=== PATIENT | female | born 1980 | race Caucasian/White ===

== ENCOUNTER 2022-07-03 10:27 | Outpatient (CLI) | payer OTHER, SELFPAY | END 2022-07-03 10:28 | disposition home or self-care (01) | PROVIDERS: Visit Provider Family Medicine | DX: Z00.00 Encounter for general adult medical examination without abnormal findings (principal); E03.9 Hypothyroidism, unspecified; Z13.6 Encounter for screening for cardiovascular disorders | CPT/HCPCS: 80053; 80061; 84443 ==

== ENCOUNTER 2023-02-09 11:16 | Outpatient (CLI) | payer OTHER, SELFPAY ==
--- NOTE | 2023-02-09 11:30 | CRLHL7_ITS ---
For Patients: As a result of the Century Cures Act, medical imaging exams and procedure reports are released immediately into your electronic medical record. You may view this report before your referring provider. If you have questions, please contact your health care provider. BILATERAL SCREENING MAMMOGRAM WITH COMPUTER-AIDED DETECTION AND TOMOSYNTHESIS TECHNIQUE: CC and MLO views were obtained. These mammographic images have been obtained using full-field digital technique. These mammographic images were interpreted with the benefit of computer-aided detection. Breast Tomosynthesis was used in this interpretation. COMPARISON FILM: Baseline. FINDINGS: The breasts are heterogeneously dense, which may obscure small masses IMPRESSION: There is no radiographic evidence for malignancy. ASSESSMENT: BI-RADS Category 1: Negative RECOMMENDATION: Routine screening mammogram in 1 year. A lay language report of this examination will be provided to the patient. Andres Cox M.D. Diagnostic Radiologist [email or web address] Transcribed: 7:30 p.[email or web address]/Dictated by: Andres Cox MD @ 02/12/2023 12:30:00 PM (Electronically Signed)
== END 2023-02-09 11:17 | disposition home or self-care (01) ==
LOC: MAMMO 11:17
PROVIDERS: Visit Provider Family Medicine
DX: Z12.31 Encounter for screening mammogram for malignant neoplasm of breast (principal)
CPT/HCPCS: 77063; 77067

== ENCOUNTER 2023-08-06 13:32 | Outpatient (CLI) | payer OTHER, SELFPAY | END 2023-08-06 13:33 | disposition home or self-care (01) | PROVIDERS: PCP Family Medicine; Visit Provider Family Medicine | DX: R10.13 Epigastric pain (principal) | CPT/HCPCS: 80053; 83690 ==

== ENCOUNTER 2023-08-07 13:50 | Outpatient (CLI) | payer OTHER, SELFPAY | END 2023-08-07 13:51 | disposition home or self-care (01) | LOC: NFLDREF 08-16 12:26 | PROVIDERS: PCP Family Medicine; Referring Provider Family Medicine; Visit Provider Family Medicine | DX: R10.13 Epigastric pain (principal) | CPT/HCPCS: 87338 ==

== ENCOUNTER 2023-08-23 10:31 | Outpatient (CLI) | payer OTHER, SELFPAY ==
--- NOTE | 2023-08-23 11:00 | CT_ITS ---
Patient: FABIÁN BRUCE Facility:?[facility] Patient ID:?[id number] Site Patient ID:?[id number] Site :?1980 Study:?CT-Abdomen/Pelvis 93CC ISOVUE 370 AND WATER PREP-08/23/2023 11:26:01 AM Ordering Physician:?DR. MONTALVO Final Report: Indication: Nausea and bloating Technique: CT Abdomen/Pelvis 93CC ISOVUE 370 AND WATER PREP Please note that all CT scans at this facility use dose modulation, iterative reconstruction, and/or weight-based dosing when appropriate to reduce radiation dose to as low as reasonably achievable. Comparison: None Findings: Lung bases are clear. There is no pleural effusion. No intrahepatic mass. Stones are present in the gallbladder measuring up to 9 millimeters. No biliary obstruction. Normal pancreas. Spleen normal. Normal adrenal glands. Kidneys within normal limits. Normal bladder. Incidental left ovarian cyst measures 2.4 cm. No uterine fibroid. No fracture is present. No dilated bowel loops. No free air or abscess. Increased stool in the colon. Appendix normal. No fracture. No adenopathy. Impression: Increased stool within the colon suggesting constipation. No mechanical bowel obstruction or inflammation. Cholelithiasis. Please note that all CT scans at this facility use dose modulation, iterative reconstruction, and/or weight-based dosing when appropriate to reduce radiation dose to as low as reasonably achievable. Dictated by Andres Cox MD @ 08/23/2023 3:02:25 PM Signed by:?Andres Cox MD @08/23/2023 3:02:25 PM (Electronic Signature)
== END 2023-08-23 10:32 | disposition home or self-care (01) ==
LOC: CT 10:34
PROVIDERS: PCP Family Medicine; Visit Provider Internal Medicine
DX: R11.0 Nausea (principal); K59.00 Constipation, unspecified; K80.20 Calculus of gallbladder without cholecystitis without obstruction
CPT/HCPCS: 74177; Q9967

== ENCOUNTER 2023-12-31 15:15 | Outpatient (CLI) | payer OTHER, SELFPAY | END 2023-12-31 15:16 | disposition home or self-care (01) | PROVIDERS: PCP Family Medicine; Visit Provider Obstetrics & Gynecology | DX: N94.3 Premenstrual tension syndrome (principal); N64.3 Galactorrhea not associated with childbirth | CPT/HCPCS: 84146; 84443 ==

== ENCOUNTER 2024-01-18 12:21 | Outpatient (CLI) | payer OTHER, SELFPAY | END 2024-01-18 12:22 | disposition home or self-care (01) | PROVIDERS: PCP Family Medicine; Visit Provider Family Medicine | DX: Z11.59 Encounter for screening for other viral diseases (principal); Z13.220 Encounter for screening for lipoid disorders; Z13.228 Encounter for screening for other metabolic disorders | CPT/HCPCS: 80053; 80061; 86803 ==

== ENCOUNTER 2024-01-25 10:45 | Emergency (ER) | payer OTHER, SELFPAY ==
[2024-01-25 10:52] VITALS: BP 115/77; PULSE 69; RESP 18; TEMP 36.4; O2SAT 99; BMI 26.6
[2024-01-25 11:32] VITALS: BP 118/82
--- NOTE | 2024-01-25 11:42 | ED.GENADULT ---
HPI - General Adult General Chief complaint: Chest Pain Stated complaint: chest heaviness/poss anxiety Time Seen by Provider: 01/25/24 10:47 History of Present Illness HPI narrative: This 43-year-old female comes in reporting anxiety and some chest discomfort. She did have her regular checkup last week and did have some adjustments for treatment of her anxiety symptoms. She is a mother of 4 children and her is deployed to [facility] for these past 8 months. She states that there is lots of stress being a sole parent. She does report some palpitations. She does not have any nausea, vomiting, lightheadedness, shortness of breath, or diaphoresis. She does not report any exercise intolerance. She does not have any cardiac risk factors. Related Data Previous Rx's ?Medication ?Instructions ?Recorded azelaic acid 15 % topical gel 1 applic topical BID #50 grams 01/10/24 (Finacea) L norgest/E estradiol-E estrad See Rx Instructions PO .COMPLEX 01/18/24 0.15 mg-30 mcg (84)/10 mcg(7) #182 ea tabs,3mos aripiprazole 2 mg tablet (Abilify) 2 mg PO QHS #30 tabs 01/18/24 bupropion HCl 150 mg 24 hr tablet, 150 mg PO QAM #90 tabs 01/18/24 extended release (Wellbutrin XL) escitalopram oxalate 20 mg tablet 20 mg PO QDAY #90 tabs 01/18/24 (Lexapro) hydroxyzine HCl 10 mg tablet 10 mg PO TID PRN anxiety #30 tabs 01/18/24 Allergies Allergy/AdvReac Type Severity Reaction Status Date / Time penicillin V Allergy Mild Rash Verified 01/18/24 12:21 Review of Systems Status of ROS: Reports: 10 or more systems reviewed and unremarkable except as noted in History and below Narrative: Constitutional: No fevers, no weight gain or loss. Eyes: No discharge. No vision changes. HENT: No congestion, no sore throat, no ear pain. Cardiovascular: She reports some palpitations. Respiratory: No shortness of breath, no wheezes, no cough. Gastrointestinal: No abdominal pain, no vomiting, no diarrhea. Genitourinary: No dysuria, no hematuria. Musculoskeletal: Normal range of motion. Skin: No rashes, no pruritis. Neurological: No dizziness, weakness, sensory change, speech change. Endo/Heme/Allergies: No bruising or bleeding. No polydipsia. Pysch: no suicidality. All other systems reviewed and are negative. [facility] Surgical History (Updated 12/31/23 @ 20:20 by Maryam Cabrera MD) S/P foot surgery ?Z98.890 - Other specified postprocedural states (ICD-10) Status post primary low transverse section ?Z98.891 - History of uterine scar from previous surgery (ICD-10) Family History (Updated 07/03/22 @ 10:23 by Carmel Garrison MD) Maternal Grandmother Alzheimers disease Other Alcohol dependence Depression Prostate cancer Social History (Updated 01/21/24 @ 09:18 by Ara Holden ~ [facility]) What is your current living situation?: I presently have a place to live In the past 12 months, utilities in danger of being shut off: no In past 12 months, lack of transportation kept you from medical appts, meetings, work, or getting things needed for daily living: no In the past 12 mos, have been you worried that your food would run out before you had money to buy more?: declined to answer In the past 12 mos, the food you bought just didn't last and you didn't have money to buy more?: never true Smoking Status: Never smoker How often do you have a drink containing alcohol: never AUDIT-C Alcohol total score: 0 Non-prescribed substance use: denies use How often does anyone, including family, friends and others, physically hurt you: never How often does anyone, including family, friends and others, insult or talk down to you: never How often does anyone, including family, friends and others, threaten you with harm: never How often does anyone, including family, friends and others, scream or curse at you: never Little interest or pleasure in doing things: several days Feeling down, depressed, or hopeless: nearly every day Exam Narrative: Exam Narrative: Constitutional: Well-developed, well-nourished, no acute distress. HEENT: Normocephalic, atraumatic. Neck: Normal range of motion. Nontender. Supple. Heart: Regular. No murmurs. Normal rate. Intact distal pulses. Lungs: Clear to auscultation. No wheezes, rhonchi, or rales. Abdomen: Normal bowel sounds. Nontender. No rebound tenderness. Genitalia: Deferred. Back: No midline tenderness. Normal range of motion. Extremities: Normal range of motion. No injury. Skin: Intact. No rash. Warm. No erythema or pallor. Neurologic: No altered sensation. No weakness. Alert and oriented. Psychiatric: No suicidality. She reports anxiety symptoms. Nursing notes and vitals signs are reviewed. Const: Vital Signs, click to edit/add: Vital Signs - 24 hr 01/25/24 10:52 Temperature 97.5 F L Pulse Rate [Pulse Oximeter] 69 Respiratory Rate 18 Blood Pressure [Ri t Upper Arm] 115/77 Pulse Oximetry 99 Oxygen Delivery Me thod Room Air Course Vital Signs Vital signs: Initial Vital Signs Temperature 97.5 F L 01/25/24 10:52 Temperature Source Temporal Artery Scan 01/25/24 10:52 Pulse Rate 69 01/25/24 10:52 Pulse Rhythm Regular 01/25/24 10:52 Respiratory Rate 18 01/25/24 10:52 Blood Pressure 115/77 01/25/24 10:52 Blood Pressure Mean 89 01/25/24 10:52 Blood Pressure Position Sitting 01/25/24 10:52 Pulse Oximetry 99 01/25/24 10:52 Oxygen Delivery Method Room Air 01/25/24 10:52 Vital Signs Temperature 97.5 F L 01/25/24 10:52 Pulse Rate 69 01/25/24 10:52 Respiratory Rate 18 01/25/24 10:52 Blood Pressure 115/77 01/25/24 10:52 Pulse Oximetry 99 01/25/24 10:52 Oxygen Delivery Method Room Air 01/25/24 10:52 Temperature 97.5 F L 01/25/24 10:52 Pulse Rate 69 01/25/24 10:52 Respiratory Rate 18 01/25/24 10:52 Blood Pressure 115/77 01/25/24 10:52 Pulse Oximetry 99 01/25/24 10:52 Oxygen Delivery Method Room Air 01/25/24 10:52 Medical Decision Making MDM Narrative Medical decision making narrative: This patient comes in reporting chest discomfort as described above. She does have a normal EKG and does not have any cardiac risk factors or other associated symptoms. She does report significant anxiety symptoms and is under more stress recently. She is showing frequent PVCs on the monitor technician. I did explain PVCs and gave reassurance is that they are not in themselves a sign of pathology. I discussed other lab and imaging options available and the patient declined these in a process of shared decision making. I did offer to prescribe a few tablets of medicines that might help with her anxiety including propranolol and Ativan. The patient declined these and is recently starting a new treatment plan as prescribed by her primary physician. She will follow up there for ongoing plans. She is sufficiently reassured here and okay to be discharged home. ECG Data Attestation: I personally reviewed and interpreted this ECG as follows: Interpretation: Normal sinus rhythm. Rate is [] beats per minute. There are no ST or T-wave abnormalities. Discharge Plan Discharge Clinical Impression: Atypical chest pain, Anxiety disorder Patient Disposition: Home, Self-Care Condition: Stable Additional Instructions: Continue current plans. Follow up with primary physician for ongoing management. Return if worsening. Prescriptions: No Action escitalopram oxalate [Lexapro] 20 mg tablet 20 mg PO QDAY Qty: 90 3RF hydroxyzine HCl 10 mg tablet 10 mg PO TID PRN (Reason: anxiety) Qty: 30 0RF bupropion HCl [Wellbutrin XL] 150 mg tablet extended release 24 hr 150 mg PO QAM Qty: 90 3RF aripiprazole [Abilify] 2 mg tablet 2 mg PO QHS Qty: 30 3RF L norgest/e.estradiol-e.estrad 0.15 mg-30 mcg (84)/10 mcg (7) tablets,dose pack,3 month See Rx Instructions PO .COMPLEX Qty: 182 3RF Rx Instructions: take 1 tablet daily following the order on blister card(s) PO azelaic acid [Finacea] 15 % gel 1 applic topical BID Qty: 50 3RF Follow Up/Referrals: Carmel Garrison MD [Primary Care Provider] - Stand Alone Forms: [employer] Info Instructions
== END 2024-01-25 12:04 | disposition home or self-care (01) ==
LOC: ED 11:52
PROVIDERS: Emergency Provider Emergency Medicine Emergency Medical Services; PCP Family Medicine
DX: R07.89 Other chest pain (principal); F41.9 Anxiety disorder, unspecified
CPT/HCPCS: 93005; 99284

== ENCOUNTER 2024-04-25 13:41 | Outpatient (CLI) | payer OTHER, SELFPAY ==
--- NOTE | 2024-04-25 13:40 | CRLHL7_ITS ---
For Patients: As a result of the Century Cures Act, medical imaging exams and procedure reports are released immediately into your electronic medical record. You may view this report before your referring provider. If you have questions, please contact your health care provider. BILATERAL SCREENING MAMMOGRAM WITH COMPUTER-AIDED DETECTION AND TOMOSYNTHESIS TECHNIQUE: CC and MLO views were obtained. These mammographic images have been obtained using full-field digital technique. These mammographic images were interpreted with the benefit of computer-aided detection. Breast Tomosynthesis was used in this interpretation. COMPARISON FILM: 02/09/23. FINDINGS: The breasts are heterogeneously dense, which may obscure small masses. IMPRESSION: There is no radiographic evidence for malignancy. ASSESSMENT: BI-RADS Category 1: Negative RECOMMENDATION: Routine screening mammogram in 1 year. A lay language report of this examination will be provided to the patient. Andres Cox M.D. Diagnostic Radiologist [email or web address] SP/Dictated by: Andres Cox MD @ 04/28/2024 10:45:00 AM (Electronically Signed)
== END 2024-04-25 13:42 | disposition home or self-care (01) ==
LOC: MAMMO 13:42
PROVIDERS: PCP Family Medicine; Visit Provider Family Medicine
DX: Z12.31 Encounter for screening mammogram for malignant neoplasm of breast (principal); R92.333 Mammographic heterogeneous density, bilateral breasts
CPT/HCPCS: 77063; 77067

== ENCOUNTER 2024-05-15 10:52 | Outpatient (CLI) | payer OTHER, SELFPAY | END 2024-05-15 10:53 | disposition home or self-care (01) | LOC: FRMREF 10:52 | PROVIDERS: PCP Family Medicine; Visit Provider Family Medicine | DX: R30.0 Dysuria (principal) | CPT/HCPCS: 87086; 87186 ==

== ENCOUNTER 2024-07-07 09:49 | Outpatient (CLI) | payer OTHER, SELFPAY | END 2024-07-07 09:50 | disposition home or self-care (01) | LOC: NPINS 09:51 | PROVIDERS: PCP Family Medicine; Visit Provider Internal Medicine | DX: Z13.0 Encounter for screening for diseases of the blood and blood-forming organs and certain disorders involving the immune mechanism (principal); R14.0 Abdominal distension (gaseous); R10.13 Epigastric pain; Z13.811 Encounter for screening for lower gastrointestinal disorder | CPT/HCPCS: 81382 ==

== ENCOUNTER 2024-11-12 14:31 | Outpatient (CLI) | payer OTHER, SELFPAY | END 2024-11-12 14:32 | disposition home or self-care (01) | LOC: FRMREF 14:33 | PROVIDERS: PCP Family Medicine; Visit Provider Nurse Practitioner Family | DX: Z11.8 Encounter for screening for other infectious and parasitic diseases (principal); R53.83 Other fatigue | CPT/HCPCS: 86618 ==

== ENCOUNTER 2025-01-06 13:15 | Outpatient (CLI) | payer OTHER, SELFPAY | END 2025-01-06 13:16 | disposition home or self-care (01) | LOC: NFLDREF 01-12 17:44 | PROVIDERS: PCP Family Medicine; Referring Provider Family Medicine; Visit Provider Surgery | DX: R10.11 Right upper quadrant pain (principal); K80.20 Calculus of gallbladder without cholecystitis without obstruction | CPT/HCPCS: 80076 ==

== ENCOUNTER 2025-01-29 10:03 | Day surgery (SDC) | payer OTHER, SELFPAY ==
[2025-01-29] VITALS (14 sets, daily range): BP systolic 111–127; BP diastolic 65–82; PULSE 48–73; RESP 16–22; TEMP 36.4–36.8; O2SAT 94–100; BMI 26.4
[2025-01-29] MEDS: SODIUM CHLORIDE 0.9 % (FLUSH) 10 ML SYRINGE IVF (10:40)
[2025-01-29] MEDS: LACTATED RINGERS 1000 ML 1,000 ML 100 ML IV (10:40)
--- NOTE | 2025-01-29 10:43 | W.PM.H&PU ---
History & Physical Update History & Physical Update H&P Reviewed and patient assessed: The following changes are noted below H&P Updates: Patient has had significant constipation for the last month. She has been working with GI and has been doing bowel preps to help her have bowel movements. This has improved.
--- NOTE | 2025-01-29 10:44 | PM.GSPRC ---
Operative Note Date of procedure: 01/29/25 Pre-op diagnosis: Biliary colic Post-op diagnosis: Same Type of Procedure: Laparoscopic cholecystectomy Indications: The patient is a 44-year-old female who has had upper abdominal discomfort after eating for the last 1-2 years. Her symptoms seem to come on approximately 20 minutes after eating and lasts several hours. The pain is become more localized to the right upper quadrant and seems more likely associated with food. She did have a fairly extensive workup for her discomfort because she has also had irritable bowel type symptoms. She has undergone upper endoscopy. She did have duodenitis but was not found to have H pylori or celiac disease. CT scan showed gallstones. Her liver tests were within normal limits. After discussion of her symptoms and options, I offered cholecystectomy and she elected to proceed. Procedure Description: After discussing the risks and benefits of the procedure, the patient signed informed consent.? The operative site was marked and the patient was brought to the operating room and placed on the operating table in supine position.? Care was taken to pad the patient's pressure points.?? The patient was then intubated by anesthesia.?? The operative site was then prepped and draped in the usual sterile fashion.? A time-out was then performed. Entrance to the abdomen was gained via a 5 mm Visiport in the left upper quadrant. The abdomen was insufflated and briefly surveyed for signs of injury. There was none. A 10 mm umbilical port was placed as well as 2 working ports along the right costal margin, all under direct vision. The patient was then placed in reverse Trendelenburg position with the right side up. The gallbladder fundus was grasped and retracted cephalad. The infundibulum was grasped. A combination of hook cautery and blunt dissection was used to carefully dissect out the cystic duct and artery until they could clearly be seen entering the gallbladder without any intervening structures. The gallbladder was dissected off the cystic plate to achieve the critical view. Once this was achieved the cystic duct and artery were each clipped with 2 clips proximally and 1 clip distally and transected with the scissors. The gallbladder was then taken off of the liver bed and removed from the abdomen using an Endo-Catch bag. A small vessel on the liver bed was clipped to prevent bleeding after dividing with cautery. The gallbladder bed was surveyed for hemostasis which appeared adequate. The remaining ports were then removed and the abdomen desufflated. The umbilical port fascia was closed with 0 Vicryl. The skin was closed with absorbable subcuticular suture. Instrument sponge and needle counts were correct at the end of the case. The patient was then woken and transferred to the PACU in stable condition. Sterile dressings were then applied. ? The patient was then woken and transported to the recovery area in stable condition. ? The patient tolerated the procedure well. Findings: Gallbladder containing gallstones Anesthesia: GETA Surgeon: Noelle Neff MD Estimated blood loss (mL): 5 Specimen: Gallbladder Condition: stable Disposition: PACU
[2025-01-29] MEDS: CLINDAMYCIN 900 MG/50 ML-D5W IVPB (11:18)
[2025-01-29] MEDS: BUPIVACAINE 0.25% 30 ML INJECTION (12:00)
--- NOTE | 2025-01-29 12:22 | P.ANES_ITS ---
Anesthesia Charges Start Date/Time Anesthesia Start Date: 01/29/25 Anesthesia Start Time: 11:09 Stop Date/Time Anesthesia Stop Date: 01/29/25 Anesthesia Stop Time: 12:19 Coding CPT Codes CPT Codes: ANESTH SURG UPPER ABDOMEN - 94639 ([id number]) P2 - PATIENT W/MILD SYST DISEASE, QK - ORE DRESSING ENGINEER 2-4 CNCRNT ANES PROC, QX - HEARING CARE PRACTITIONER SVC W/ MD MED DIRECTION
--- NOTE | 2025-01-29 12:22 | W.ANESCHARGE ---
Anesthesia Charges Start Date/Time Anesthesia Start Date: 01/29/25 Anesthesia Start Time: 11:09 Stop Date/Time Anesthesia Stop Date: 01/29/25 Anesthesia Stop Time: 12:19 Coding CPT Codes CPT Codes: ANESTH SURG UPPER ABDOMEN - 67395 ([id number]) P2 - PATIENT W/MILD SYST DISEASE, QK - BRIDGE MECHANIC 2-4 CNCRNT ANES PROC, QX - BARBED WIRE MACHINE OPERATOR SVC W/ MD MED DIRECTION
--- NOTE | 2025-01-29 12:37 | P.ANES_ITS ---
Anesthesia Charges Start Date/Time Anesthesia Start Date: 01/29/25 Anesthesia Start Time: 11:09 Stop Date/Time Anesthesia Stop Date: 01/29/25 Anesthesia Stop Time: 12:19 Coding CPT Codes CPT Codes: ANESTH SURG UPPER ABDOMEN - 38223 ([id number]) P1 - NORMAL HEALTHY PATIENT, QK - SILK SCREEN PRINTER MACHINE 2-4 CNCRNT ANES PROC, QX - SKIVER BOX TOE SVLex W/ MED DIRECTION
--- NOTE | 2025-01-29 12:37 | W.ANESCHARGE ---
Anesthesia Charges Start Date/Time Anesthesia Start Date: 01/29/25 Anesthesia Start Time: 11:09 Stop Date/Time Anesthesia Stop Date: 01/29/25 Anesthesia Stop Time: 12:19 Coding CPT Codes CPT Codes: ANESTH SURG UPPER ABDOMEN - 71003 ([id number]) P1 - NORMAL HEALTHY PATIENT, QK - DANCE CHOREOGRAPHER 2-4 CNCRNT ANES PROC, QX - GPS FIELD DATA COLLECTOR SVLex W/ MED DIRECTION
== END 2025-01-29 14:04 | disposition home or self-care (01) ==
PROVIDERS: PCP Family Medicine; Visit Provider Surgery
PROC: 0FT44ZZ Resection of Gallbladder, Percutaneous Endoscopic Approach (ICD-10-PCS; CPT 47562; principal; 2025-01-29 12:00)
DX: K80.20 Calculus of gallbladder without cholecystitis without obstruction (principal)
CPT/HCPCS: 47562; 00790; J0330; J0665; J0736; J1100; J1630; J1885; J2250; J2405; J2704; J2710; J3010; J3490; J7120

== ENCOUNTER 2025-03-03 09:53 | Emergency (ER) | payer OTHER, SELFPAY ==
--- OUTSIDE RECORDS SUMMARY | 2025-03-03 10:00 | XMS_ITS | Clinical Summary ---
[facility] Address [address] [place] [address] Care Team Providers Care Pe Teacher Name Role Phone Rosangela Goodson MD Primary Care Provider Source Comments You are receiving this document as you are listed as the primary care provider,follow-up provider, or the patient has been referred to you for consultation.This is in compliance with the Medicare andOhio State Health Systemcaid EHR Incentive Program,which states Providers who transition their patient to another setting of careor provider of care or refers their patient to another provider of care shouldprovide summary care record for each transition of care or referral. [facility] Allergies Active Allergy Reactions Criticality Noted Date Comments Penicillins Rash 10/08/2002 Medications naproxen (AKA NAPROSYN) 500 MG tabletIndicatio ns:Sprain thoracic region Take 1 tablet by mouth 2 times daily (with meals). scheduled for 2 weeks, then as needed for pain 60 tablet 1 3 Active cyclobenzaprine (AKA FLEXERIL) 10 MG tabletIndicatio ns:Sprain thoracic region Take 1 tablet by mouth at bedtime as needed for Muscle spasms. 14 tablet 0 3 Active Additional Information Patient not taking.Reported on 05/03/2024 amphetamine-dex troamphetamine XR (ADDERALL XR) 10 MG 24 hour release capsule Take 1 Capsule (10 mg) by mouth every morning. 4 Active azelaic acid (FINACEA) 15 % gel Apply topically. 4 Active buPROPion (WELLBUTRIN XL) 150 MG 24 hour release tablet Take 1 Tablet (150 mg) by mouth daily. 4 Active escitalopram oxalate (LEXAPRO) 20 MG tablet Take 1 Tablet (20 mg) by mouth daily. 4 Active hydrOXYzine HCl (ATARAX) 10 MG tablet Take 1 Tablet (10 mg) by mouth three times a day. 4 Active SIMPESSE 0.15-0.03 &0.01 MG tablet Take 1 Tablet by mouth daily. 4 Active traZODone (DESYREL) 50 MG tablet Take 1 Tablet (50 mg) by mouth daily at bedtime. 4 Active drospirenone-et hinyl estradiol (KARTIK) 3-0.03 MG tablet Take 1 Tablet by mouth daily. 4 Active phenazopyridine (PYRIDIUM) 100 MG tabletIndicatio ns:Dysuria Take 1 Tablet (100 mg) by mouth three times a day as needed for Pain. 6 Tablet 5 Active Active Problems Problem Noted Date Diagnosed Date Bunion of great toe of right foot Bunion of great toe of left foot Immunizations Immunization Administration Dates Next Due DTP 09/29/1987, 5,06/02/1983,1982,01/12/1983 HepB Adult (Engerix-B, 20+ y rs, 3 dose series) 12/14/1997,12/14/1994,10/09/1994 Hib (ActHIB) 03/06/1985 MMR 10/09/1994,02/05/1984 OPV, Trivalent (Orimune or tOPV) 988,05/13/1984,03/30/1983,1982 Rabies 02/22/2004,02/08/2004,02/01/2004 TDAP (ADACEL) 08/17/2005 Td 12/14/1997 Family History Relation Name Status Comments Father Alive Mother Alive Social History Tobacco Use Types Packs/Day Years Used Date Smoking Tobacco: Never Smokeless Tobacco: Never Tobacco Cessation:Counseling Given: Not Answered Alcohol Use Standard Drinks/Week Comments Yes 1.7 (1 standard drin k = 0.6 oz pure alcohol) Alcoholic Drinks/day: Amount:1-2 drinks; Freq:2-3/week ; Comments No Sex and Gender Information Value Date Recorded Sex Assigned at Not on file Legal Sex Female 4:55 AM CDT Gender Identity Not on file Sexual Orientation Not on file 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 Not on file Not on file Not on file Last Filed Vital Signs Vital Sign Reading Time Taken Comments Blood Pressure 111/67 05/03/2024 1:35 PM MARKETING INSTRUCTOR Pulse 62 05/03/2024 1:35 PM MARKETING INSTRUCTOR Temperature 37.2 C (99 F) 05/03/2024 1:35 PM MARKETING INSTRUCTOR Respiratory Rate 18 05/03/2024 1:35 PM MARKETING INSTRUCTOR Oxygen Saturation 100% 05/03/2024 1:35 PM MARKETING INSTRUCTOR Inhaled Oxygen Concentration - - Weight 82.6 kg (182 lb) 03/16/2024 10:38 AM MARKETING INSTRUCTOR Height 175.3 cm (5' 9) 03/16/2024 10:38 AM MARKETING INSTRUCTOR Body Mass Index 26.88 03/16/2024 10:38 AM MARKETING INSTRUCTOR Plan of Treatment Health Maintenance Due Date Last Done Comments Diabetes Screening- (based on age and BMI) 1982 Hep C Screening (Preventive Services) 1982 Mammogram 1982 HIV Screening (Preventive Services) 1998 Adult Preventive Visit 2000 HPV Vaccine (1 - 3-dose SCDM series) 2009 Cervical Cancer Screening Due 12/02/2010 12/01/2010, 08/03/2009, 06/06/2008, Additional history exists COVID-19 Vaccine ( season) 2024 04/12/2021, 07/29/2020, 06/30/2020 Influenza Vaccine (#1) 2024 , 03/31/2021, 02/18/2020, Additional history exists Zoster/Shingles Vaccine (1 of 2) 2032 DTaP/Tdap/Td Vaccine (11 - Tdap) 01/17/2034 01/18/2024, 10/21/2019, 08/10/2017, Additional history exists Hib Vaccine Completed 03/06/1985 IPV (Polio) Vaccine Completed 09/29/1987, 05/13/1984, 03/30/1983, Additional history exists HepB Vaccine Completed 12/14/1997, 11/22, 10/09/1994 HepA Vaccine Aged Out No longer eligi ble based on patient's age to complete this topic MCV4 Vaccine Aged Out No longer eligi ble based on patient's age to complete this topic Meningococcal B Vaccine Aged Out No l onger eligible based on patient's age to complete this topic Pneumococcal Vaccine Aged Out No long er eligible based on patient's age to complete this topic Procedures Procedure Name Priority Date/Time Associated Diagnosis Comments ANATOMICAL PATH LIQUID BASED Routine 12/01/2010 10:14 AM CDT from Last 3 Months or Most Recently Relevant to Health Maintenance Results * Pap Smear (12/01/2010 10:14 AM CDT) 12/01/2010 10:1 4 AM CDT Narrative HP CONVERSION - 12/06/2010 3:00 PM CDT Final GYNECOLOGICAL CYTOLOGY REPORT Pathology #: [id number] Date Obtained: 12/01/2010 Date Received: 12/02/2010 INTERPRETATION/RESULTS: Negative for Intraepithelial Lesion or Malignancy Fungal organisms morphologically consistent with Ai species. SPECIMEN ADEQUACY: Satisfactory for Evaluation. Endocervical cells/transformation zone component present. Verified on 12/06/2010 by ALEKS ARRIAGA MD (electronic signature) CLINICAL NOTES: LMP: 11/11/2010. LIQUID BASED PAP SMEAR SPECIMEN TYPE: CERVICAL WITH REFLEX TO HPV IF ASCUS PLEASE NOTE: The pap smear is a screening test designed to aid in the detection of cervical cancer and its precursor lesions. It is not a diagnostic procedure and should not be used as the sole means of detecting cervical cancer. Both false-positive and false-negative reports may occur. End of Report Rosangela Goodson MD LAB_1 Final Result HP CONVERSION from Last 3 Months or Most Recently Relevant to Health Maintenance Insurance [facility] Care Teams Pe Teacher Relationship Specialty Start [place] [id number] [place] [address] PCP - General 07/25/10
[2025-03-03 10:05] VITALS: BP 123/77; PULSE 69; RESP 16; TEMP 36.9; O2SAT 99; BMI 26.4
--- NOTE | 2025-03-03 11:07 | ED_ITS ---
HPI - General Adult General Chief complaint: Abdominal Pain Stated complaint: Abdominal pain Time Seen by Provider: 03/03/25 11:07 History of Present Illness HPI narrative: Pt reports really weird abdominal pain since Sunday. Pain is burning /cramping and radiates to her back/spine, intensity varies throughout the day. Pt states she has chronic GI issues, states this pain is different than her usual pain. No improvement from ibu/ tylenol. Pt also reports some viral illness in household for the last 2 weeks, currently has body/joint aches and feels swollen related to this . Pt was advised by helix coil winder to come to ED. Pt notes her BP of 123/77 is high for me. 44-year-old woman presenting to the emergency department with complaint unusual uncomfortable abdominal pain over the last 2 days. Waxes and wanes. Does have a history gastrointestinal problems with what sounds like constipation predominant IBS. Little over month ago had a cholecystectomy for abdominal pain with cholelithiasis; suspected biliary colic. Seemed to be doing well postop. No complications in the surgery. Initially had looser stools but now back to her usual constipation. She believes she had a bowel movement a couple of days ago. Otherwise there has been none GI viral illness in her household during last couple of weeks. She herself has now started to experience multiple joint aches without swelling or erythema. This probably preceded the abdominal pain by a day. Also having pain radiating into back. She got to thinking and worrying the perhaps this might be some issue with her her pancreas or may be postop complication. Hip pain as well. Recalls that with prior COVID had a good deal of hip pain. Abdominal pain is primarily in the epigastrium and into the medial aspect of the left hypogastrium. Thinks her rosacea is flaring as well. Related Data Previous Rx's ?Medication ?Instructions ?Recorded azelaic acid 15 % topical gel 1 applic topical BID #50 grams 01/10/24 (Finacea) hydroxyzine HCl 10 mg tablet 10 mg PO TID PRN anxiety #30 tabs 01/18/24 cholestyramine 4 gram oral powder 4 g PO QDAY #210 gra ms 11/03/24 (Cholestyramine Light) trazodone 50 mg tablet 50 mg PO QHS #90 tabs escitalopram oxalate 20 mg tablet 20 mg PO QDAY #90 ta bs 01/15/25 (Lexapro) peg 3350-electrolytes 236 4,000 ml PO DIRECTED PRN 01/19/25 gram-22.74 gram-6.74 gram-5.86 constipation #4,000 mL gram solution (Golytely) propranolol 10 mg tablet 5 mg (1/2 x 10 mg) PO TID MI N 01/22/25 anxiety #30 tabs ketorolac 10 mg tablet 10 mg PO TID PRN pain 5 days #15 01/29/25 tabs dextroamphetamine-amphetamine ER 10 - 20 mg (1 - 2 x 1 0 mg) PO QAM 02/03/25 10 mg 24hr capsule,extend release #60 caps (Adderall XR) drospirenone 3 mg-ethinyl 1 tab PO QDAY #84 tabs 02/16 estradiol 0.03 mg tablet (Meeta (28)) Allergies Allergy/AdvReac Type Severity Reaction Status Date / Time penicillin V Allergy Mild Rash Verified 02/18/25 09:50 Review of Systems Status of ROS: Reports: 6 or more systems reviewed and unremarkable except as noted in History and below [facility] Medical History Depression ?F32.A - Depression, unspecified (ICD-10) Anxiety ?F41.9 - Anxiety disorder, unspecified (ICD-10) ADHD ?F90.9 - Attention-deficit hyperactivity disorder, unspecified type (ICD-10) Gallstones ?K80.20 - Calculus of gallbladder without cholecystitis without obstruction (ICD-10) Palpitations ?R00.2 - Palpitations (ICD-10) PMS (premenstrual syndrome) ?N94.3 - Premenstrual tension syndrome (ICD-10) Surgical History Status post cholecystectomy ?Z90.49 - Acquired absence of other specified parts of digestive tract (ICD- 10) S/P foot surgery ?Z98.890 - Other specified postprocedural states (ICD-10) Status post primary low transverse section ?Z98.891 - History of uterine scar from previous surgery (ICD-10) Family History Maternal Grandmother Alzheimers disease Other Alcohol dependence Depression Prostate cancer Social History Narrative: 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 Does not drink alcohol. She stays at home with her 4 children. What is your current living situation?: I presently have a place to live In the past 12 months, utilities in danger of being shut off: no In past 12 months, lack of transportation kept you from medical appts, meetings, work, or getting things needed for daily living: no In the past 12 mos, have been you worried that your food would run out before you had money to buy more?: declined to answer In the past 12 mos, the food you bought just didn't last and you didn't have money to buy more?: never true Smoking Status: Never smoker Do you use any of these nicotine containing products: None How often do you have a drink containing alcohol: monthly or less How often do you have six or more drinks on one occasion: Never AUDIT-C Alcohol total score: 1 Non-prescribed substance use: denies use Caffeine: Yes How often does anyone, including family, friends and others, physically hurt you : never How often does anyone, including family, friends and others, insult or talk down to you: never How often does anyone, including family, friends and others, threaten you with harm: never How often does anyone, including family, friends and others, scream or curse at you: never Are you using contraception or practicing any form of control: Yes Exam Narrative: Exam Narrative: Curled up in exam bed when I enter the room. Pleasant. NAD. Breathing easily. Transitions without notable difficulty. She is wearing a mask. Skin is warm and dry. I do not see specific joint swelling. Left knee in particular was bothering her and this is without effusion or particular pain. Breathing easily. Heart in regular rate rhythm without murmur or gallop. Abdomen is soft without peritoneal signs. No flank pain. She has normal bowel sounds. She is a little tender to palpation in the right mid abdomen and epigastrium and left hypogastrium as noted. Repeat exam later clearly has pain in the SI joints I think left greater than right. She does acknowledge that had been experiencing an issue with her right foot? recently affecting her gait. Const: Vital Signs, click to edit/add: Vital Signs - 24 hr 03/03/25 10:05 03/03/25 14:12 Temperature 98.5 F 97.8 F Pulse Rate [Pulse Oximeter] 69 63 Respiratory Rate 16 19 Blood Pressure [Ri ght Upper Arm] 123/77 115/75 Pulse Oximetry 99 100 Oxygen Delivery Me thod Room Air Room Air Documenting provider has reviewed patient's vital signs: yes Course Vital Signs Vital signs: Initial Vital Signs Temperature 98.5 F 03/03/25 10:05 Temperature Source Oral 03/03/25 10:05 Pulse Rate 69 03/03/25 10:05 Respiratory Rate 16 03/03/25 10:05 Blood Pressure 123/77 03/03/25 10:05 Blood Pressure Mean 92 03/03/25 10:05 Blood Pressure Position Sitting 03/03/25 10:05 Pulse Oximetry 99 03/03/25 10:05 Oxygen Delivery Method Room Air 03/03/25 10:05 Vital Signs Temperature 98.5 F 03/03/25 10:05 Pulse Rate 69 03/03/25 10:05 Respiratory Rate 16 03/03/25 10:05 Blood Pressure 123/77 03/03/25 10:05 Pulse Oximetry 99 03/03/25 10:05 Oxygen Delivery Method Room Air 03/03/25 10:05 Temperature 97.8 F 03/03/25 14:12 Pulse Rate 63 03/03/25 14:12 Respiratory Rate 19 03/03/25 14:12 Blood Pressure 115/75 03/03/25 14:12 Pulse Oximetry 100 03/03/25 14:12 Oxygen Delivery Method Room Air 03/03/25 14:12 Medications Administered Medications: Discontinued Medications Generic Name Dose Route Start Last Admin Trade Name Freq PRN Reason Stop Dose Admin Sodium Chloride 1,000 mls @ 1,000 mls/hr 03/03/25 11:20 03/03/25 12:54 0.9 % Sodium Chloride 1000 Ml IV 03/03/25 12:19 Infused .Q1H ONE Infusion Ketorolac Tromethamine 30 mg 03/03/25 11:20 03/03/25 11:30 Ketorolac 30 Mg/Ml Inj IVP 03/03/25 11:21 30 mg ONCE ONE Administration Lidocaine/Aluminum/Magnesium/Simeth 30 ml 03/03/25 13:10 03/03/25 13:20 Gi Cocktail (Visc Lido/Antacid) 30 Ml PO 03/03/25 13:11 30 ml ONCE ONE Administration Medical Decision Making MDM Narrative Medical decision making narrative: Does appear to be experiencing more of inflammatory state; exacerbation of underlying health problems. Post viral arthralgia? Can certainly check for red flags and look for evidence of potential pancreatitis although clinically I would not suggest that she has this. Not struggling with nausea either. Would also try to help with symptoms. Initiating normal saline IV and ketorolac. Worse case probably dissection but is not of high risk for this. Pending standard labs might proceed with ultrasound partly given recent surgery although I think this will likely be unremarkable. She makes a point of saying that her gastrointestinal symptoms generally have been functional; not really ulcer/dyspeptic with unremarkable EGDs. Labs are reassuring. CRP a little elevated related to inflammatory state/postop? She does still have concern and would like to proceed with ultrasound when discussed options. Discussed findings with digital production artist; ultrasound limited of the abdomen looks unremarkable. INDICATION: Epigastric pain status post cholecystectomy. TECHNIQUE: Ultrasound abdomen limited. Sonographic images of the right upper quadrant were obtained using colin-scale and color Doppler images. COMPARISON: None FINDINGS: Liver: Normal in size and echotexture. No masses. No intrahepatic biliary dilatation. Gallbladder: Status post cholecystectomy. Common bile duct: 5 mm. Pancreas: Normal. Right kidney: Normal in size. Normal echotexture and cortex. No masses, stones, or hydronephrosis. Vasculature: Proximal abdominal aorta and IVC are normal. IMPRESSION: Unremarkable right upper quadrant ultrasound status post cholecystectomy. Dictated by Nathaniel Johnson MD @ 03/03/2025 2:00:53 PM No further events during time in the emergency department. I think that GI cocktail may have been a little helpful but minimally so. See patient discharge plan for further discussion I -w-o-u-l-d- (wouldn't) be surprised if some of the pain you are having is related to your stomach. This could be radiating into your back. Would consider taking 20 mg to 40 mg of famotidine daily over the next 2 weeks and then reassess. I have added on a D-dimer as discussed to your labs and will call you if this is concerningly elevated You do seem to have pain in your sacroiliac joints. Please see handout on stretches/strengthening exercises that could be done. You could place a lidocaine patch on each of these and see if this might help when they get more irritated. Alternatively diclofenac gel could be applied. Both of these are available [id number]. Return for marked increase in persistent pain, repeated vomiting, associated fever. Be sure to treat constipation. Medical Records Medical records reviewed: Yes I reviewed the patient's medical records Lab Data Lab results reviewed: Yes I reviewed the patient's lab results Labs: Lab Results 03/03/25 03/03/25 Range/Units 11:39 14:12 WBC 4.31 L (4.50-11.00) K/uL RBC 4.29 (4.00-5.20) m/uL Hgb 13.6 (12.0-16.0) gm/dL Hct 40.4 (33.0-51.0) % MCV 94 (80-100) fL MCH 32 (26-34) pg MCHC 34 (32-36) gm/dL RDW Coeff of William 11.4 L (11.5-15.5) % Plt Count 241 (140-440) K/uL Neut % (Auto) 58.6 (42.0-72.0) % Lymph % (Auto) 30.2 (20-44) % Robertson % (Auto) 8.6 (0.0-11.0) % Eos % (Auto) 1.9 (0.0-7.0) % Baso % (Auto) 0.7 (0.0-3.0) % Neut # (Auto) 2.50 (1.7-7.0) K/uL Lymph # (Auto) 1.30 (0.90-2.90) K/uL Robertson # (Auto) 0.40 (0.00-0.90) K/UL Eos # (Auto) 0.10 (0.00-0.50) K/uL Baso # (Auto) 0.00 (0.00-0.30) K/uL Abs Immat Gran (auto) 0.00 (0.00-0.30) K/uL Imm/Tot Granulo (auto) 0.0 % ESR 10 (2-20) mm/hr D-Dimer Quant (PE/DVT) 0.46 (0.00-0.50) ug/ml Sodium 137 (135-149) mmol/L Potassium 4.2 (3.6-5.1) mmol/L Chloride 101 (96-114) mmol/L Carbon Dioxide 27 (20-32) mmol/L Anion Gap 9 (7-15) mEq/L BUN 14 (5-24) mg/dL Creatinine 0.7 (0.5-1.5) mg/dL Estimated Creat Clear 109.41 Estimated GFR 111 ml/min Glucose 95 (60-115) mg/dL Calcium 8.8 (8.4-10.6) mg/dL Total Bilirubin 0.2 (0.1-1.5) mg/dL Direct Bilirubin 0.1 (0.0-0.5) mg/dL AST 32 (12-35) U/L ALT 21 (4-35) U/L Alkaline Phosphatase 70 (40-150) U/L C-Reactive Protein 2.6 H (0.5-1.0) mg/dL Total Protein 7.1 (6.0-8.3) g/dL Albumin 3.9 (3.3-5.0) g/dL Lipase 51 (23-300) U/L SARS-CoV-2 (PCR) Negative SARS-CoV-2 (Negative) Lab Acknowledgement Test Added ECG Data Attestation: I personally reviewed and interpreted this ECG as follows: (Sinus rhythm. PVC. Rate of 62) Discharge Plan Discharge Clinical Impression: Epigastric pain, Polyarthralgia, Sacroiliac joint pain Patient Disposition: Home w/ Parent or Adult Condition: Improved Additional Instructions: I -w-o-u-l-d- (wouldn't) be surprised if some of the pain you are having is related to your stomach. This could be radiating into your back. Would consider taking 20 mg to 40 mg of famotidine daily over the next 2 weeks and then reassess. I have added on a D-dimer as discussed to your labs and will call you if this is concerningly elevated You do seem to have pain in your sacroiliac joints. Please see handout on stretches/strengthening exercises that could be done. You could place a lidocaine patch on each of these and see if this might help when they get more irritated. Alternatively diclofenac gel could be applied. Both of these are available [id number]. Return for marked increase in persistent pain, repeated vomiting, associated fever. Be sure to treat constipation. Prescriptions: No Action hydroxyzine HCl 10 mg tablet 10 mg PO TID PRN (Reason: anxiety) Qty: 30 0RF peg 3350-electrolytes [Golytely] 236-22.74-6.74 -5.86 gram recon soln 4,000 ml PO DIRECTED PRN (Reason: constipation) Qty: 4000 0RF Cholestyramine Light 4 gram powder 4 g PO QDAY Qty: 210 0RF Rx Instructions: administer w/meal; avoid other meds within 1hr before or 4-6hr after dose ketorolac 10 mg tablet 10 mg PO TID PRN (Reason: pain) 5 Days Qty: 15 0RF azelaic acid [Finacea] 15 % gel 1 applic topical BID Qty: 50 3RF trazodone 50 mg tablet 50 mg PO QHS Qty: 90 3RF escitalopram oxalate [Lexapro] 20 mg tablet 20 mg PO QDAY Qty: 90 0RF propranolol 10 mg tablet 5 mg PO TID PRN (Reason: anxiety) Qty: 30 0RF dextroamphetamine-amphetamine [Adderall XR] 10 mg capsule,extended release 24 hr 10 - 20 mg PO QAM Qty: 60 0RF drospirenone-ethinyl estradiol [Meeta (28)] 3-0.03 mg tablet 1 tab PO QDAY Qty: 84 0RF Follow Up/Referrals: Carmel Garrison MD [Primary Care Provider, Family Practice] Stand Alone Forms: [facility] Info Instructions
[2025-03-03 12:09] LABS: Hematocrit* 40.4 % (33.0-51.0); Hemoglobin* 13.6 gm/dL (12.0-16.0); Immature Granulocytes Abs Auto 0.00 K/uL (0.00-0.30); Immature Granulocytes Pct Auto 0.0 %; Lymphocytes Absolute Auto 1.30 K/uL (0.90-2.90); Mean Corpuscular HGB Conc 34 gm/dL (32-36); Mean Corpuscular Hemoglobin 32 pg (26-34); Mean Corpuscular Volume 94 fL (80-100); RDW Coefficient of Variation % 11.4 % (11.5-15.5); Red Blood Count* 4.29 m/uL (4.00-5.20); White Blood Count* 4.31 K/uL (4.50-11.00)
[2025-03-03 12:13] LABS: Slide Review Reflex No
[2025-03-03 12:26] LABS: Albumin* 3.9 g/dL (3.3-5.0); Chloride* 101 mmol/L (96-114); Sodium* 137 mmol/L (135-149)
[2025-03-03 12:27] LABS: Potassium* 4.2 mmol/L (3.6-5.1)
[2025-03-03 12:29] LABS: Alanine Aminotransferase* 21 U/L (4-35); Alkaline Phosphatase* 70 U/L (40-150); Anion Gap 9 mEq/L (7-15); Aspartate Amino Transferase* 32 U/L (12-35); Bilirubin Direct* 0.1 mg/dL (0.0-0.5); Bilirubin Total* 0.2 mg/dL (0.1-1.5); Blood Urea Nitrogen* 14 mg/dL (5-24); Carbon Dioxide* 27 mmol/L (20-32); Creatinine* 0.7 mg/dL (0.5-1.5); Est. Creatinine Clearance* 109.41; Estimated Glomerular Filt Rate 111 ml/min; Total Protein* 7.1 g/dL (6.0-8.3)
[2025-03-03 12:30] LABS: Calcium* 8.8 mg/dL (8.4-10.6); Glucose* 95 mg/dL (60-115)
[2025-03-03 12:35] LABS: SARS PCR* Negative SARS-CoV-2 (Negative)
--- NOTE | 2025-03-03 13:09 | CRLHL7_ITS ---
For Patients: As a result of the Century Cures Act, medical imaging exams and procedure reports are released immediately into your electronic medical record. You may view this report before your referring provider. If you have questions, please contact your health care provider. INDICATION: Epigastric pain status post cholecystectomy. TECHNIQUE: Ultrasound abdomen limited. Sonographic images of the right upper quadrant were obtained using colin-scale and color Doppler images. COMPARISON: None FINDINGS: Liver: Normal in size and echotexture. No masses. No intrahepatic biliary dilatation. Gallbladder: Status post cholecystectomy. Common bile duct: 5 mm. Pancreas: Normal. Right kidney: Normal in size. Normal echotexture and cortex. No masses, stones, or hydronephrosis. Vasculature: Proximal abdominal aorta and IVC are normal. IMPRESSION: Unremarkable right upper quadrant ultrasound status post cholecystectomy. Dictated by Nathaniel Johnson MD @ 03/03/2025 2:00:53 PM (Electronically Signed)
[2025-03-03] MEDS: GI COCKTAIL (VISC LIDO/ANTACID) 30 ML PO (13:20)
[2025-03-03 13:29] LABS: Erythrocyte SedimentationRate* 10 mm/hr (2-20)
[2025-03-03 14:12] VITALS: BP 115/75; PULSE 63; RESP 19; TEMP 36.6; O2SAT 100
[2025-03-03 17:38] LABS: D Dimer Quantitative* 0.46 ug/ml (0.00-0.50)
== END 2025-03-03 14:37 | disposition home or self-care (01) ==
PROVIDERS: Emergency Provider Family Medicine; PCP Family Medicine
DX: R10.13 Epigastric pain (principal); M53.3 Sacrococcygeal disorders, not elsewhere classified
CPT/HCPCS: 36415; 76705; 80048; 80076; 83690; 85025; 85379; 85651; 86140; 87635; 93005; 96361; 96374; 99284; 99285; A9270; J1885; J7030